=== PATIENT | male | born 1960 | race Asian ===

== ENCOUNTER 2023-11-27 04:22 | Day surgery (SDC) | payer OTHER ==
[2023-11-20 13:20] VITALS: BMI 29.5
[2023-11-27 08:38] VITALS: TEMP 97.5
[2023-11-27 09:23] VITALS: BP 111/58; PULSE 58; RESP 15
== END 2023-11-27 09:15 | disposition home or self-care (01) ==
LOC: JASU-ENDO 04:22
PROVIDERS: ATTEND Internal Medicine Gastroenterology
PROC: 0DBP8ZX Excision of Rectum, Via Natural or Artificial Opening Endoscopic, Diagnostic (ICD-10-PCS; principal; 2023-11-27 08:00)
DX: Z12.11 Encounter for screening for malignant neoplasm of colon (principal); D12.8 Benign neoplasm of rectum; K64.8 Other hemorrhoids; K57.30 Diverticulosis of large intestine without perforation or abscess without bleeding; I10 Essential (primary) hypertension; E11.9 Type 2 diabetes mellitus without complications; Z79.84 Long term (current) use of oral hypoglycemic drugs
CPT/HCPCS: 82962; 88305-TC